=== PATIENT | female | born 1965 | race Caucasian/White ===

== ENCOUNTER 2017-01-16 15:16 | Inpatient (IN) | payer OTHER ==
[~2017-01-16] VITALS: Ht 157.5 cm; Wt 96.0 kg
[2017-01-16 16:51] LABS: EOSINOPHIL COUNT 0.2 K/uL (0-0.3); HEMATOCRIT 41.3 % (36.0-46.0); IMMATURE GRANULOCYTE (%) 0.3 % (0.0-0.7); INSTRUMENT ABS NEUTROPHIL CT 5.8 K/uL; LYMPHOCYTE COUNT 1.3 K/uL (1.0-2.8); MCH 29.4 PG (29.0-34.0); MCHC 32.4 G/DL (30.0-36.0); MCV 90.6 FL (83-99); MEAN PLAT.VOLUME 10.3 uM^3 (9.5-12.4); MONOCYTE (%) 8.9 % (3-12); MONOCYTE COUNT 0.7 K/uL (0-0.8); NEUTROPHIL (%) 72.7 % (45-76); NEUTROPHIL COUNT 5.8 K/uL (1.8-6.4); PLATELET COUNT 216 K/uL (156-360); RBC DIS.WIDTH-CV 12.8 % (11.8-14.6); RBC DIS.WIDTH-SD 41.9 % (39-53); RED BLOOD COUNT 4.56 M/uL (3.80-5.20)
[2017-01-16 16:58] LABS: PROTHROMBIN TIME 11.4 SEC (10.2-12.9)
[2017-01-16 17:01] LABS: CHLORIDE 105 mEq/L (99-109); POTASSIUM 3.7 mEq/L (3.7-5.4); SODIUM 140 mEq/L (136-147)
[2017-01-16 17:03] LABS: GLUCOSE 106 mg/dL (70-99)
[2017-01-16 17:04] LABS: ANION GAP 13 MEQ/L (2-14)
[2017-01-16 17:05] LABS: TOTAL BILIRUBIN 0.4 mg/dL (0.0-1.0)
[2017-01-16 17:07] LABS: ALKALINE PHOSPHATASE 99 IU/L (3-129); GFR ESTIMATE (CALCULATED) 55 mL/min/
[2017-01-16 17:08] LABS: UREA NITROGEN (BUN) 16 mg/dL (9-23)
[2017-01-16 17:12] LABS: TROP-I INTERPRETATION NEGATIVE; TROPONIN-I 0.01 ng/mL (0.0-0.30)
[2017-01-16] MEDS ORDERED: FAMOTIDINE20 MG PO (18:15)
[2017-01-16] MEDS ORDERED: PROTONIX40 MG PO (18:16)
[2017-01-16] MEDS ORDERED: GLUCOPHAGE500 MG PO (18:16)
[2017-01-16] MEDS ORDERED: ADVAIR 250/501 DISK IH (18:17)
[2017-01-16] MEDS ORDERED: XYZAL5 MG PO (18:17)
[2017-01-16] MEDS ORDERED: SINGULAIR10 MG PO (18:17)
[2017-01-16] MEDS ORDERED: DUONEB 2.5-0.5 M3 ML AEROSOL (18:18)
[2017-01-16] MEDS ORDERED: NEURONTIN600 MG PO (18:18)
[2017-01-16] MEDS ORDERED: CARTIA XT120 MG PO (18:18)
[2017-01-16] MEDS ORDERED: TUSSIONEX PENN473 ML PO (18:19)
[2017-01-16 20:12] LABS: Estimated Average Glucose 126 mg/dL (70-123)
[2017-01-16 20:24] LABS: HDL CHOLESTEROL 54 MG/DL (Desirable>=50); LDL CHOLESTEROL 126 mg/dL (Desirable<100); NON-HDL CHOLESTEROL 179 mg/dL (Desirable<160); TOTAL CHOLESTEROL 233 mg/dL (Desirable<200); TRIGLYCERIDES 266 MG/DL (Normal: <150)
[2017-01-16 20:50] VITALS: BP 140/90
[2017-01-17] VITALS (9 sets, daily range): BP systolic 139–196; BP diastolic 89–107
[2017-01-17 06:51] LABS: HEMATOCRIT 40.3 % (36.0-46.0); MCH 28.9 PG (29.0-34.0); MCHC 31.5 G/DL (30.0-36.0); MCV 91.6 FL (83-99); MEAN PLAT.VOLUME 10.3 uM^3 (9.5-12.4); PLATELET COUNT 222 K/uL (156-360); RBC DIS.WIDTH-CV 12.9 % (11.8-14.6)
[2017-01-17 11:19] LABS: ADD MIUA? YES; BILIRUBIN NEGATIVE; BLOOD SMALL; COLOR YELLOW ((YELLOW)); GLUCOSE (STRIP) NEGATIVE; KETONES NEGATIVE; LEUKOCYTES MODERATE; NITRITE POSITIVE; PROTEIN (STRIP) NEGATIVE; SPECIFIC GRAVITY 1.003 (1.000-1.030); UROBILINOGEN 0.2 MG/DL (0.2-1.0)
[2017-01-17 11:40] LABS: AMPHETAMINES QUANT VALUE 0 NG/ML; BARBITUATES QUANT VALUE 0 NG/ML; BENZODIAZEPINES QUANT VALUE 0 NG/ML; BENZODIAZEPINES, URINE SCREEN Negative (200 ng/mL); MARIJUANA QUANT VALUE 0 NG/ML; OPIATES QUANTITATIVE VALUE 0 NG/ML; PHENCYCLIDINE QUANT VALUE 0 NG/ML
[2017-01-17 13:42] LABS: BACTERIA 3+ /HPF; CASTS NONE SEEN /LPF; CRYSTALS NONE SEEN; EPITHELIAL CELLS RARE /HPF; MUCUS NONE SEEN /LPF; RED BLOOD CELLS 0-5 /HPF (0-5); UCUL ADDED? YES; WHITE BLOOD CELLS 20-30 /HPF (0-5)
[2017-01-17 20:58] LABS: POINT-OF-CARE METER ID UU14188625; POINT-OF-CARE USER ID 603211116
[2017-01-18 04:28] VITALS: BP 119/79
[2017-01-18 06:47] LABS: EOSINOPHIL (%) 3.3 % (0-5); EOSINOPHIL COUNT 0.2 K/uL (0-0.3); HEMATOCRIT 43.1 % (36.0-46.0); IMMATURE GRANULOCYTE (%) 0.3 % (0.0-0.7); INSTRUMENT ABS NEUTROPHIL CT 3.8 K/uL; LYMPHOCYTE COUNT 1.9 K/uL (1.0-2.8); MCH 29.8 PG (29.0-34.0); MCHC 32.7 G/DL (30.0-36.0); MCV 91.1 FL (83-99); MEAN PLAT.VOLUME 10.4 uM^3 (9.5-12.4); MONOCYTE (%) 11.3 % (3-12); MONOCYTE COUNT 0.8 K/uL (0-0.8); NEUTROPHIL COUNT 3.8 K/uL (1.8-6.4); PLATELET COUNT 271 K/uL (156-360); RBC DIS.WIDTH-SD 42.6 % (39-53); RED BLOOD COUNT 4.73 M/uL (3.80-5.20); WHITE BLOOD COUNT 6.8 K/uL (4.1-10.2)
[2017-01-18 07:12] LABS: ALKALINE PHOSPHATASE 98 IU/L (3-129); ANION GAP 13 MEQ/L (2-14); CHLORIDE 104 MEQ/L (99-109); GFR ESTIMATE (CALCULATED) > 59 mL/min/; GLUCOSE 111 mg/dL (70-99); POTASSIUM 4.3 MEQ/L (3.7-5.4); SAMPLE HEMOLYSIS CHECK 0; SAMPLE ICTERIC CHECK 0; SAMPLE LIPEMIA CHECK 0; SODIUM 141 MEQ/L (136-147); TOTAL BILIRUBIN 0.6 MG/DL (0.0-1.0); UREA NITROGEN (BUN) 12 mg/dL (9-23)
[2017-01-18 07:46] LABS: POINT-OF-CARE METER ID UU13113717
[2017-01-18 08:00] VITALS: BP 128/87
[2017-01-18] MEDS ORDERED: LORATADINE10 M2 PO (11:15)
[2017-01-18] MEDS ORDERED: PRAVASTATIN SOD40 MG PO (11:16)
[2017-01-18] MEDS ORDERED: LISINOPRIL10 MG PO (11:16)
[2017-01-18] MEDS ORDERED: PREDNISONE10 MG PO (11:19)
[2017-01-18 20:22] VITALS: BP 126/81
[2017-01-18 20:51] LABS: POINT-OF-CARE METER ID UU14174225
[2017-01-19 00:44] VITALS: BP 137/88
[2017-01-19 08:09] VITALS: BP 136/56
[2017-01-19] MEDS ORDERED: LIDODERM 5% P1 PATCH TD (10:48)
[2017-01-19] MEDS ORDERED: PERCOCET 5/31 TABLET PO (10:50)
[2017-01-19 15:55] VITALS: BP 108/65
== END 2017-01-19 17:20 | disposition home health service (06) | DRG 690 ==
LOC: EME 15:16 → EDOF 18:44 → ENRESERV 18:45 → 5SOUTH 20:44
PROVIDERS: Emergency Medicine; Hospitalist
DX: N39.0 Urinary tract infection, site not specified (principal); S09.90XA Unspecified injury of head, initial encounter; B96.20 Unspecified Escherichia coli [E. coli] as the cause of diseases classified elsewhere; M50.91 Cervical disc disorder, unspecified, high cervical region; E11.9 Type 2 diabetes mellitus without complications; I10 Essential (primary) hypertension; J45.909 Unspecified asthma, uncomplicated; E66.01 Morbid (severe) obesity due to excess calories; Z68.38 Body mass index [BMI] 38.0-38.9, adult; Z87.442 Personal history of urinary calculi; Z88.6 Allergy status to analgesic agent; Z83.3 Family history of diabetes mellitus; Z82.49 Family history of ischemic heart disease and other diseases of the circulatory system; Z82.3 Family history of stroke
CPT/HCPCS: 70450; 70551; 72141; 73502; 80053; 80061; 80306 90; 81003; 82607; 82746; 82948; 83036; 84443; 84484; 85025; 85027; 85610; 85730; 87077; 87086; 87186; 93005; 93880; 94640; 94640 76; 94760; 94799; 97530 GP; 99202; 99281; 99284; J1650; J1815; J7030; J7512

== ENCOUNTER → 2017-03-04 | Outpatient (CLI) | payer OTHER ==
[~2017-03-04] MED LIST: ADVAIR 250/501 DISK IH; CARTIA XT120 MG PO; DUONEB 2.5-0.5 M3 ML AEROSOL; FAMOTIDINE20 MG PO; GLUCOPHAGE500 MG PO; LIDODERM 5% P1 PATCH TD; LISINOPRIL10 MG PO; LORATADINE10 M2 PO; NEURONTIN600 MG PO; PERCOCET 5/31 TABLET PO; PRAVASTATIN SOD40 MG PO; PREDNISONE10 MG PO; PROTONIX40 MG PO; SINGULAIR10 MG PO; TUSSIONEX PENN473 ML PO; XYZAL5 MG PO
== END | disposition home or self-care (01) ==
DX: R13.13 Dysphagia, pharyngeal phase (principal); R05 Cough; K21.9 Gastro-esophageal reflux disease without esophagitis
CPT/HCPCS: 92611 GN; G8996 GN; G8997 GN; G8998 GN

== ENCOUNTER → 2017-04-16 | Outpatient (CLI) | payer OTHER ==
[~2017-04-16] VITALS: Ht 157.5 cm; Wt 96.0 kg
[~2017-04-16] MED LIST changes: +PRAVACHOL40 MG PO; +ZESTRIL10 MG PO
[2017-04-16 09:45] LABS: POINT-OF-CARE METER ID UU14107333
[2017-04-16 12:09] LABS: POINT-OF-CARE METER ID UU13113819
== END | disposition home or self-care (01) ==
LOC: AMB 09:00
PROVIDERS: Internal Medicine
DX: K29.70 Gastritis, unspecified, without bleeding (principal); D12.2 Benign neoplasm of ascending colon; D12.3 Benign neoplasm of transverse colon; K21.9 Gastro-esophageal reflux disease without esophagitis; K59.00 Constipation, unspecified; K62.89 Other specified diseases of anus and rectum; Z86.010 Personal history of colon polyps; J45.909 Unspecified asthma, uncomplicated; Z99.81 Dependence on supplemental oxygen; I10 Essential (primary) hypertension; Z86.73 Personal history of transient ischemic attack (TIA), and cerebral infarction without residual deficits; Z91.09 Other allergy status, other than to drugs and biological substances; Z91.010 Allergy to peanuts; Z90.49 Acquired absence of other specified parts of digestive tract; Z90.710 Acquired absence of both cervix and uterus; Z88.1 Allergy status to other antibiotic agents; Z88.6 Allergy status to analgesic agent; Z88.8 Allergy status to other drugs, medicaments and biological substances
CPT/HCPCS: 82948; 88305; 88342 TC; 99202; J2250; J3010